=== PATIENT | female | born 1990 | race Two or more races ===

== ENCOUNTER 2016-12-11 13:55 | Emergency (ER) | payer SELFPAY ==
[~2016-12-11] VITALS: Ht 170.2 cm; Wt 59.0 kg
[~2016-12-11 13:55] MED LIST: DOCU-109 PO; FERR300L PO; Ibuprofen PO; OXYC-323 PO
[2016-12-11 14:10] VITALS: BP 121/66
--- NOTE | 2016-12-11 14:39 | PHYS DOC ---
Past Medical History Past Medical History: No Pertinent History Past Surgical History: Cholecystectomy, Alcohol Use: None Drug Use: None Adult General Chief Complaint Chief Complaint: VAGINAL BLEEDING HPI HPI Patient is a 26 year old female, 3 para 2, 9 weeks by dates and early ultrasound. She states she has had some light pink spotting for this past week but today she developed some cramping about 12:30 she began to have some vaginal bleeding which is about as heavy as a period. Patient does have a [facility] doctor, she can't recall the name, but she did have her new patient appointment about a week ago. She also had an ultrasound in [place] about 3 weeks ago with a did see her baby's heartbeat. She has an appointment for an ultrasound tomorrow through her [facility] doctor, which she may because of the spotting she's been having for the last week. Today, however, she began to have heavier bleeding so she decided to come to the ED. Shouldn't had one vaginal delivery, one . She did have some spotting with her first that was not very heavy. Her blood type is AB+ as recorded in the medical record here at [facility]. [facility]- he has one but cannot recall the name, previously was Dr. Kimble Review of Systems Review of Systems Constitutional: Denies fever or chills [] : As in history of present illness. Denies UTI symptoms. Allergies Allergies Allergies Coded Allergies Type Severity Reaction Last Updated Verified nut - unspecified Allergy Severe 02/06/15 Yes Physical Exam Physical Exam Constitutional: Well developed, well nourished, no acute distress, non-toxic appearance. [] HENT: Normocephalic, atraumatic, bilateral external ears normal, nose normal. [] Eyes: conjunctiva normal, no discharge. [] Neck: Normal range of motion, no stridor. [] Cardiovascular:Heart rate regular rhythm, no murmur [] Lungs & Thorax: Bilateral breath sounds clear to auscultation [] Abdomen: Bowel sounds normal, soft, no tenderness, no masses, no pulsatile masses. [] Skin: Warm, dry, no erythema, no rash. [] Extremities: No tenderness, no cyanosis, no clubbing, ROM intact, no edema. [] Neurologic: Alert and oriented X 3, normal motor function, normal sensory function, no focal deficits noted. [] Current Patient Data Vital Signs Vital Signs Date Time Temp Pulse Resp B/P (MAP) Pulse Ox O2 Delivery O2 Flow Rate FiO2 12/11/16 14:10 98.7 82 18 121/66 (84) 98 Room Air 98.7 Lab Values Laboratory Tests Test 12/11/16 13:18 POC Urine HCG, Qualitative Hcg positive (Negative) EKG EKG [] Radiology/Procedures Radiology/Procedures PROCEDURE: OB <14 WKS W/TV Obstetrical ultrasound, 12/11/2016: HISTORY: Bleeding and cramping, Transabdominal and transvaginal scans were obtained. The uterus contains a small gestational sac. It contains a yolk sac and a pole measuring 5 mm in length. This suggests a gestational age of 6 weeks and 1 day. cardiac motion is not evident. This is not necessarily abnormal with a pole of this size, however, reportedly there is a recent prior exam which demonstrated an early IUP with heart motion. If that is truly the case, the current findings would indicate a nonviable . The ovaries are of normal size. No adnexal mass is seen. No free fluid is evident in the pelvis. IMPRESSION: 1. Intrauterine of approximately 6 weeks gestational age with no heart motion evident. Correlation with the patient's recent prior exam is suggested. 2. The pelvic ultrasound is otherwise unremarkable. Electronically signed by: Pito Cleveland MD (12/11/2016 6:12 PM) [facility] DICTATED and SIGNED BY: PITO CLEVELAND MD DATE: 12/11/16 180[] Course & Med Decision Making Course & Med Decision Making Pertinent Labs and Imaging studies reviewed. (See chart for details) Female, 9 weeks by dates and early ultrasound, presents with about 2 hours of vaginal bleeding that is no heavier than a menstrual period. Some cramping but not severe. Her blood type by patient report and medical record here [facility] is AB+. Urine test is positive. Vital signs are stable. We will check a OB ultrasound. Patient is agreeable to this plan. 1500 I signed out the patient to Dr. Calderon who will check results of ultrasound, talked to patient, and make disposition. --- Assumed care from Dr. Joseph. Ultrasound as above. Discussed results with the patient. She has a previous ultrasound showing heart tones, today's exam consistent with demise. Discussed briefly with Dr. Kimble, he is able to see the patient for follow-up if she should have any difficulty following up with her OB. She does have an appointment scheduled for tomorrow and I encouraged her to keep this appointment. No treatments initiated at this time. Gave prescription for Tilden to take as needed for severe pain. Instructions for pelvic rest. Come back for high fever, severe pain, uncontrolled vomiting, heavy bleeding requiring use of greater than 1 pad per hour, any otherwise worsening condition. Discharged home in stable condition. Felecia Calderon MD [] Dragon Disclaimer Dragon Disclaimer This electronic medical record was generated, in whole or in part, using a voice recognition dictation system. Departure Departure Impression: Primary Impression: Vaginal bleeding in Disposition: HOME, SELF-CARE Condition: STABLE Referrals: NO PCP (PCP) RAFAEL KIMBLE Jr, MD Patient Instructions: Vaginal Bleeding During , [id number] Additional Instructions: You were seen in the emergency department today for vaginal bleeding in . Unfortunately the ultrasound showed a fetus only 6 weeks along and a heartbeat was not seen. Since you had an ultrasound before that showed a heartbeat, this suggests that you are having a miscarriage. If your appointment in the clinic tomorrow for further evaluation by your OB doctor. If you have severe pain you can take Tilden. No drinking alcohol or driving while taking this medication. Come back for high fever, severe pain, heavy bleeding requiring more than 1 pad per hour, any otherwise worsening condition. Scripts Hydrocodone/Apap 5-325 (NORCO 5-325 TABLET) 1 Each Tablet 1 TAB PO PRN Q6HRS Y for PAIN, #10 TAB 0 Refills Prov: FELECIA CALDERON MD 12/11/16 TALHA JOSEPH MD Dec 11, 2016 14:39 FELECIA CALDERON MD Dec 11, 2016 19:14
--- NOTE | 2016-12-11 18:15 | RAD ---
Obstetrical ultrasound, 12/11/2016: HISTORY: Bleeding and cramping, Transabdominal and transvaginal scans were obtained. The uterus contains a small gestational sac. It contains a yolk sac and a pole measuring 5 mm in length. This suggests a gestational age of 6 weeks and 1 day. cardiac motion is not evident. This is not necessarily abnormal with a pole of this size, however, reportedly there is a recent prior exam which demonstrated an early IUP with heart motion. If that is truly the case, the current findings would indicate a nonviable . The ovaries are of normal size. No adnexal mass is seen. No free fluid is evident in the pelvis. IMPRESSION: 1. Intrauterine of approximately 6 weeks gestational age with no heart motion evident. Correlation with the patient's recent prior exam is suggested. 2. The pelvic ultrasound is otherwise unremarkable. Electronically signed by: Pito Cleveland MD (12/11/2016 6:12 PM) [facility]
[2016-12-11] MEDS ORDERED: HYDR-971 PO (19:13)
== END 2016-12-11 19:25 | disposition home or self-care (01) ==
LOC: ER 13:55
DX: O46.91 Antepartum hemorrhage, unspecified, first trimester (principal); Z90.49 Acquired absence of other specified parts of digestive tract; Z98.890 Other specified postprocedural states; Z3A.09 9 weeks gestation of pregnancy
CPT/HCPCS: 76801; 76817; 81025; 99284-25